=== PATIENT | male | born 1955 | race African-American/Black ===

== ENCOUNTER 2018-01-11 10:09 | Emergency (ER) | payer OTHER ==
[2018-01-11 10:34] LABS: BILIRUBIN,URINE NEGATIVE (NEG); CLARITY,URINE CLEAR; COLOR,URINE YELLOW; GLUCOSE,URINE NEGATIVE (NEG); NITRITE,URINE NEGATIVE (NEG); PROTEIN,URINE 100 mg/dL (NEG-TRACE); UROBILINOGEN,URINE 0.2 mg/dL (0.2 mg/dL)
[2018-01-11 10:46] LABS: BACTERIA,URINE 0 /HPF (0-FEW); RBC,URINE OCC /HPF (0-2); SQUAMOUS EPITHELIAL CELL,UR OCC /LPF; WBC,URINE 0 /HPF (0-4)
== END 2018-01-11 12:30 | disposition home or self-care (01) ==
LOC: ER 10:09
DX: N45.1 Epididymitis (principal); I86.1 Scrotal varices; I10 Essential (primary) hypertension; Z79.899 Other long term (current) drug therapy
CPT/HCPCS: 76870; 81001; 99285-25

== ENCOUNTER → 2018-04-13 | Outpatient (CLI) | payer OTHER | END | disposition home or self-care (01) | LOC: ECHO 13:40 | DX: I36.1 Nonrheumatic tricuspid (valve) insufficiency (principal); I48.91 Unspecified atrial fibrillation; I12.9 Hypertensive chronic kidney disease with stage 1 through stage 4 chronic kidney disease, or unspecified chronic kidney disease; N18.3 Chronic kidney disease, stage 3 (moderate); E78.5 Hyperlipidemia, unspecified | CPT/HCPCS: 93306 ==

== ENCOUNTER → 2018-09-08 | Day surgery (SDC) | payer OTHER ==
[~2018-09-08] MED LIST: ALLO300T PO; AMLO10TA6 PO; CARV25TA2 PO; COLC0.6T34 PO; HYDR-2761 PO; HYDROmorphone 2 MG/ML VIAL IV PRN; IV RINGERS,LACTATED 1000ML 1,000 ML IV SCH; LIDOCAINE 1% PF 2 ML VIAL. ID PRN; LOSA-73 PO; LOSA1TAB25 PO; METO25TA4 PO; MORPHINE SULFATE 2 MG/ML VIAL. IV PRN; ONDANSETRON PF 4 MG/2 ML VIAL. IV PRN; PROCHLORPERAZINE 10 MG/2 ML VIAL. IV PRN; PROPOFOL 40 ML IV ONE; RIVA20TA2 PO; SULF1TAB24 PO; fentaNYL PF VIAL 100 MCG/2 ML VIAL IV PRN
--- NOTE | 2018-09-08 10:33 | EKG ---
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
[2018-09-08 11:02] LABS: BASO % 1 % (0-3); EOS # 0.1 x10^3/uL (0.0-0.7); EOS % 3 % (0-3); HEMATOCRIT 42.5 % (39.0-53.0); HEMOGLOBIN 14.8 g/dL (13.0-17.5); LYMPH # 1.7 x10^3/uL (1.0-4.8); LYMPH % 39 % (24-48); MEAN CORPUSCULAR HEMOGLOBIN 30 pg (25-35); MEAN CORPUSCULAR HGB CONC 35 g/dL (31-37); MEAN CORPUSCULAR VOLUME 87 fL (79-100); MONO # 0.5 x10^3/uL (0.0-1.1); MONO % 11 % (0-9); NEUT % 46 % (31-73); PLATELET COUNT 233 x10^3/uL (140-400); RED CELL DISTRIBUTION WIDTH 13.5 % (11.5-14.5); WHITE BLOOD COUNT 4.4 x10^3/uL (4.0-11.0)
[2018-09-08 11:13] LABS: CALCIUM 9.4 mg/dL (8.5-10.1); CREATININE 1.9 mg/dL (0.7-1.3); GFR 43.4; MAGNESIUM 1.9 mg/dL (1.8-2.4); POTASSIUM 3.1 mmol/L (3.5-5.1)
--- NOTE | 2018-09-08 12:22 | EKG ---
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
--- NOTE | 2018-09-08 18:30 | PDOC4 ---
PROCEDURE Procedure Procedure note. Procedure electrical cardioversion. The patient is a pleasant 63-year-old male was found to be atrial fibrillation. His rate was controlled and he was appropriately anticoagulated. Risks and benefits of an attempted cardioversion were discussed with the patient. He agreed to proceed. He was scheduled for outpatient cardioversion for his atrial fibrillation. The patient was reviewed by the anesthesiology service. Risks and benefits of the procedure were discussed. He was confirmed to be in atrial fibrillation. After appropriate anesthesia by the anesthesiology service the patient was cardioverted with 250 J of synchronized energy. He was converted to a sinus rhythm. He remained in sinus rhythm. He awoke normally from the anesthesia. Conclusions. Successful cardioversion of atrial fibrillation to a normal sinus rhythm. FIORELLA BARAHONA MD Sep 08, 2018 18:30
== END | disposition home or self-care (01) ==
LOC: SURG 09:56
PROVIDERS: ATTEND Internal Medicine Cardiovascular Disease
DX: I48.91 Unspecified atrial fibrillation (principal); I10 Essential (primary) hypertension; M10.9 Gout, unspecified; Z79.899 Other long term (current) drug therapy; Z82.49 Family history of ischemic heart disease and other diseases of the circulatory system; Z72.89 Other problems related to lifestyle; Z85.46 Personal history of malignant neoplasm of prostate
CPT/HCPCS: 36415; 80048; 83735; 85025; 92960; 93005; J2704